=== PATIENT | female | born 1970 | race Caucasian/White ===

== ENCOUNTER 2017-03-08 11:09 | Emergency (ER) | payer OTHER ==
[~2017-03-08] VITALS: Ht 170.2 cm; Wt 113.4 kg
[~2017-03-08 11:09] MED LIST: ALBU.083IS IH; ALBU8HFA2 INH; ALBU90OI INH; AMOX500 PO; ATEN50 PO; AZIT250 PO; BACL10 PO; BENZ100A PO; CODGUAEL PO; CYCL10 PO; DEXGUASY; DIPH50 PO; DOXY100 PO; ESCI10 PO; HYDACE5 PO; HYDACE5325 PO; HYDCHL25 PO; IBUP400 PO; IBUP600 PO; IBUP800; IBUP800 PO; METCAR500 PO; NAPR500 PO; OMEP20ER PO; PENVK500 PO; PRED20 PO; PROCODE120 PO; PROM25 PO; RANI150; SPACER IH; SULTRIDS PO; Ventolin5 MG/1 ML INH
[2017-03-08] MEDS ORDERED: ACET325 PO (13:29)
[2017-03-08] MEDS ORDERED: Lasix20 MG PO (13:53)
[2017-03-08] MEDS ORDERED: Prednisone20 MG PO (14:50)
[2017-03-08] MEDS ORDERED: ALBU90OI INH (14:50)
[2017-12-28] MEDS ORDERED: BACL10 (11:32)
[2017-12-28] MEDS ORDERED: GABA300 (11:32)
[2017-12-28] MEDS ORDERED: DICL25ER (11:32)
[2017-12-28] MEDS ORDERED: METO50 (11:33)
[2017-12-28] MEDS ORDERED: Benedryl E12.5 MG/5 (11:33)
== END 2017-03-08 15:25 | disposition home or self-care (01) ==
LOC: ER 11:09
DX: J40 Bronchitis, not specified as acute or chronic (principal); K43.9 Ventral hernia without obstruction or gangrene; I48.92 Unspecified atrial flutter; J81.1 Chronic pulmonary edema; E66.01 Morbid (severe) obesity due to excess calories; R59.0 Localized enlarged lymph nodes; Z68.39 Body mass index [BMI] 39.0-39.9, adult; F17.200 Nicotine dependence, unspecified, uncomplicated; Z98.51 Tubal ligation status
CPT/HCPCS: 71046; 99283; J1100

== ENCOUNTER 2018-10-09 19:44 | Emergency (ER) | payer OTHER ==
[~2018-10-09] VITALS: Ht 170.2 cm; Wt 122.5 kg
[~2018-10-09 19:44] MED LIST changes: +ACET325 PO; +BACL10; +Benedryl E12.5 MG/5; +DICL25ER; +GABA300; +Lasix20 MG PO; +METO50; +Prednisone20 MG PO
[2018-10-09] MEDS ORDERED: HYDCHL25 PO (21:13)
[2018-10-09] MEDS ORDERED: Omeprazole20 M1 PO (21:13)
[2018-10-09] MEDS ORDERED: Prednisone20 MG PO (22:12)
[2018-10-09] MEDS ORDERED: KETO10 PO (22:12)
== END 2018-10-09 22:19 | disposition home or self-care (01) ==
LOC: ER 19:44
DX: M54.42 Lumbago with sciatica, left side (principal); G89.29 Other chronic pain; Z88.8 Allergy status to other drugs, medicaments and biological substances; Z79.899 Other long term (current) drug therapy; J45.909 Unspecified asthma, uncomplicated; F17.210 Nicotine dependence, cigarettes, uncomplicated
CPT/HCPCS: 99283; J1100

== ENCOUNTER → 2021-02-16 | Outpatient (CLI) | payer OTHER ==
[~2021-02-16] MED LIST changes: +KETO10 PO; +Omeprazole20 M1 PO
[2021-02-16 14:42] LABS: Source, Urine Clean Catch
[2021-02-16 15:23] LABS: Appearance, Urine Clear (Clear); Bilirubin, Urine Neg (Neg); Blood, Urine 1+ (Neg); Color, Urine Yellow (P-Yellow); Glucose Qualitative, Urine Neg (Neg); Ketones, Urine Neg (Neg); Leukocyte Esterase, Urine 1+ (Neg); Nitrite, Urine Pos (Neg); Protein, Urine 2+ (Neg); Specific Gravity, Urine 1.025 (1.003-1.022); Urobilinogen, Urine NORM (Normal)
[2021-02-16 15:58] LABS: Bacteria Many /hpf; Squamous Epithelial Cells Few /hpf (Few)
[2021-02-16 15:59] LABS: Amorphous Light (0-Heavy); Mucus Light (0-Heavy)
== END ==
LOC: LAB SHORT 14:40
PROVIDERS: Physician Assistant Medical
DX: B37.9 Candidiasis, unspecified (principal)
CPT/HCPCS: 81001

== ENCOUNTER 2022-02-05 12:01 | Day surgery (SDC) | payer OTHER ==
[~2022-02-05] VITALS: Ht 167.6 cm; Wt 113.3 kg
--- NOTE | 2022-02-05 14:37 | NUR ---
02/05/22 1437 KEERTHI WELDON PT REPORTS CHEST/STERNAL AND ABD PAIN UPON RETURNING TO ROOM. DR. SEGOVIA ADVISED WITH NO NEW ORDERS. PT PROVDIDED WITH WATER AND VOICED IMPROVEMENT WITH SMALL SIPS. PT DENIES NAUSEA. DR. SEGOVIA IN TO SEE PT WITH NO NEW ORDERS, PT INSTRUCTED TO TAKE TYLENOL UPON GOING HOME AND TO TRY SOFT FOODS FIRST, AVOIDING SPICY, CARBONATION, AND LEAFY VEGETABLE TODAY THEY MAY BE HARD TO PROCESS. PT VERBALIZED UNDERSTANDING. SISTER AT BEDSIDE.
== END 2022-02-05 14:39 | disposition home or self-care (01) ==
LOC: ORSCSDS 12:01
PROVIDERS: Internal Medicine Gastroenterology
PROC: 0DBM8ZX Excision of Descending Colon, Via Natural or Artificial Opening Endoscopic, Diagnostic (ICD-10-PCS; principal; 2022-02-05 13:15)
PROC: 0DB58ZX Excision of Esophagus, Via Natural or Artificial Opening Endoscopic, Diagnostic (ICD-10-PCS; principal; 2022-02-05 13:15)
PROC: 0DBL8ZX Excision of Transverse Colon, Via Natural or Artificial Opening Endoscopic, Diagnostic (ICD-10-PCS; principal; 2022-02-05 13:15)
PROC: 0DBN8ZX Excision of Sigmoid Colon, Via Natural or Artificial Opening Endoscopic, Diagnostic (ICD-10-PCS; principal; 2022-02-05 13:15)
DX: K22.70 Barrett's esophagus without dysplasia (principal); D12.3 Benign neoplasm of transverse colon; K21.9 Gastro-esophageal reflux disease without esophagitis; Z80.0 Family history of malignant neoplasm of digestive organs; Z12.11 Encounter for screening for malignant neoplasm of colon; K63.5 Polyp of colon; I10 Essential (primary) hypertension; J44.9 Chronic obstructive pulmonary disease, unspecified; I47.1 Supraventricular tachycardia; F17.210 Nicotine dependence, cigarettes, uncomplicated; E11.9 Type 2 diabetes mellitus without complications; Z79.899 Other long term (current) drug therapy; E66.9 Obesity, unspecified; Z68.39 Body mass index [BMI] 39.0-39.9, adult
CPT/HCPCS: 82947; 88305; J1100; J2001; J2704

== ENCOUNTER → 2022-03-25 | Outpatient (CLI) | payer OTHER | END | disposition home or self-care (01) | LOC: PLD 14:47 → LAB 14:47 → LAB SHORT 14:47 | DX: L82.1 Other seborrheic keratosis (principal) | CPT/HCPCS: 88305 ==

== ENCOUNTER → 2022-03-25 | Outpatient (CLI) | payer OTHER ==
[2022-03-30 14:10] LABS: HPV 16 Negative (Negative); HPV 18 Negative (Negative); HPV OTHER HR TYPES Negative (Negative)
== END | disposition home or self-care (01) ==
LOC: LAB SHORT 09:58 → LAB 09:58
PROVIDERS: Student in an Organized Health Care Education/Training Program
DX: Z12.4 Encounter for screening for malignant neoplasm of cervix (principal)
CPT/HCPCS: 87624; G0145

== ENCOUNTER 2023-10-31 21:17 | Emergency (ER) | payer OTHER ==
[~2023-10-31] VITALS: Ht 170.2 cm; Wt 111.6 kg
[2023-10-31 22:30] VITALS: BP 132/88
[2023-10-31] MEDS ORDERED: Tetrahydrozoline 0.05% Opth Soln 15 ML LEFTEYE ONE (23:15)
[2023-10-31] MEDS ORDERED: Fluorescein Sod 1MG Opth Strips LEFTEYE ONE (23:20)
== END 2023-11-01 00:48 | disposition home or self-care (01) ==
LOC: ER 21:17
DX: T65.91XA Toxic effect of unspecified substance, accidental (unintentional), initial encounter (principal); T30.4 Corrosion of unspecified body region, unspecified degree; R21 Rash and other nonspecific skin eruption; F17.210 Nicotine dependence, cigarettes, uncomplicated; J45.909 Unspecified asthma, uncomplicated; Z79.52 Long term (current) use of systemic steroids; Z79.899 Other long term (current) drug therapy; Z88.8 Allergy status to other drugs, medicaments and biological substances
CPT/HCPCS: A9270

== ENCOUNTER → 2025-02-04 | Outpatient (CLI) | payer OTHER ==
[2025-02-04 14:42] LABS: BASOPHILS ABSOLUTE AUTO 0.09 K/mm3 (0.00-0.23); BASOPHILS PERCENT AUTO 2 % (0-2); EOSINOPHILS ABSOLUTE AUTO 0.29 K/mm3 (0.00-0.68); EOSINOPHILS PERCENT AUTO 6 % (0-6); Hematocrit 42.8 % (33.0-51.0); Hemoglobin 13.6 g/dL (11.5-16.0); IMMATURE GRAN ABSOLUTE AUTO 0.03 K/mm3 (0.00-0.10); IMMATURE GRAN PERCENT AUTO 1 % (0-1); LYMPHOCYTES ABSOLUTE AUTO 1.99 K/mm3 (0.84-5.20); LYMPHOCYTES PERCENT AUTO 38 % (21-46); MONOCYTES ABSOLUTE AUTO 0.64 K/mm3 (0.16-1.47); MONOCYTES PERCENT AUTO 12 % (4-13); Mean Corpuscular HGB Conc 31.8 g/dL (31.5-36.5); Mean Corpuscular Volume 97 fL (80-100); NEUTROPHILS ABSOLUTE AUTO 2.18 K/mm3 (1.96-9.15); NEUTROPHILS PERCENT AUTO 42 % (41-73); NRBC ABSOLUTE 0.00 K/mm3 (0.00-0.02); NRBC Auto 0.0 /100 WBC (0.0-0.2); Platelet Count 211 K/mm3 (150-400); RDW Coefficient Variation 12.8 % (11.7-14.2); RDW Standard Deviation 45.6 fL (35.1-46.3)
[2025-02-04 15:26] LABS: Alanine Aminotransfer (ALT/SGP 34 U/L (12-78); Albumin, Blood 3.4 g/dL (3.4-5.0); Albumin/Globulin Ratio 1.0 (0.8-1.8); Anion Gap 9 mmol/L (3-11); Aspartate Aminotrans (AST/SGOT 28 U/L (12-37); Bilirubin, Total 0.4 mg/dL (0.1-1.0); Blood Urea Nitrogen 26 mg/dL (8-24); C-REACTIVE PROTEIN, EXT RANGE <0.290 mg/dL (0.000-0.300); CO2, Blood 26 mmol/L (21-32); Calcium, Blood 9.0 mg/dL (8.5-10.1); Chloride, Blood 109 mmol/L (98-108); Creatinine, Blood 0.93 mg/dL (0.40-1.00); Globulin, Blood 3.5 g/dL (2.2-4.0); Glucose, Blood 115 mg/dL (70-99); Potassium, Blood 4.9 mmol/L (3.5-5.5); Sodium, Blood 139 mmol/L (136-145); Total Protein, Blood 6.9 g/dL (6.4-8.2)
[2025-02-06 06:03] LABS: ANTI-NUCLEAR AB ANA,IGG ELISA None Detected (None Detected)
[2025-02-06 09:27] LABS: RHEUMATOID FACTOR 682 IU/mL (0-14)
== END ==
LOC: LAB 07:30 → LAB SHORT 07:30
PROVIDERS: Student in an Organized Health Care Education/Training Program
DX: I10 Essential (primary) hypertension (principal); R73.03 Prediabetes; R79.82 Elevated C-reactive protein (CRP); R29.898 Other symptoms and signs involving the musculoskeletal system; M25.50 Pain in unspecified joint; G89.29 Other chronic pain; M48.062 Spinal stenosis, lumbar region with neurogenic claudication; M51.362 Other intervertebral disc degeneration, lumbar region with discogenic back pain and lower extremity pain
CPT/HCPCS: 80053; 85025; 85651; 86038; 86140; 86431